=== PATIENT | female | born 1990 | race Caucasian/White ===

== ENCOUNTER 2018-01-24 22:15 | Emergency (ER) | payer MEDICAID ==
[~2018-01-24] VITALS: Ht 165.1 cm; Wt 115.1 kg
[2018-01-24] MEDS ORDERED: azithromycin 250mg tablet PO ONE (22:40)
[2018-01-24] MEDS ORDERED: benzonatate 100mg capsule PO ONE (22:40)
[2018-01-24] MEDS ORDERED: BENZ-38 PO (22:44)
[2018-01-24] MEDS ORDERED: AZIT-63 PO (22:44)
[2018-01-24] MEDS ORDERED: TAM75C PO (22:44)
[2018-01-24 23:07] VITALS: BP 122/74
== END 2018-01-24 22:50 | disposition home or self-care (01) ==
LOC: ER 22:16
DX: J20.9 Acute bronchitis, unspecified (principal); F11.10 Opioid abuse, uncomplicated; Z79.899 Other long term (current) drug therapy
CPT/HCPCS: 99283

== ENCOUNTER → 2018-01-24 | Emergency (ER) | payer MEDICAID ==
[~2018-01-24] VITALS: Ht 165.1 cm; Wt 116.7 kg
[~2018-01-24] MED LIST: AZIT-63 PO; BENZ-38 PO; TAM75C PO
[2018-01-24 21:36] VITALS: BP 139/79
== END | disposition left against medical advice (07) ==
LOC: ER 21:35
DX: H92.09 Otalgia, unspecified ear (principal); Z53.21 Procedure and treatment not carried out due to patient leaving prior to being seen by health care provider

== ENCOUNTER 2018-01-27 02:24 | Emergency (ER) | payer MEDICAID ==
[~2018-01-27] VITALS: Ht 165.1 cm; Wt 104.5 kg
[2018-01-27 02:28] VITALS: BP 157/87
== END 2018-01-27 02:57 | disposition home or self-care (01) ==
LOC: ER 02:24
DX: J06.9 Acute upper respiratory infection, unspecified (principal); F11.90 Opioid use, unspecified, uncomplicated; Z79.899 Other long term (current) drug therapy
CPT/HCPCS: 99281

== ENCOUNTER 2018-02-04 17:29 | Emergency (ER) | payer MEDICAID ==
[~2018-02-04] VITALS: Ht 165.1 cm; Wt 107.0 kg
[~2018-02-04 17:29] MED LIST changes: -TAM75C PO
[2018-02-04 18:03] VITALS: BP 122/87
[2018-02-04] MEDS ORDERED: morphine 4 MG/ML inj SYRINge IM ONE (19:00)
[2018-02-04] MEDS ORDERED: HYDR-569 PO (19:00)
== END 2018-02-04 19:25 | disposition home or self-care (01) ==
LOC: ER 17:29
DX: S83.92XA Sprain of unspecified site of left knee, initial encounter (principal); F17.200 Nicotine dependence, unspecified, uncomplicated; F11.10 Opioid abuse, uncomplicated; W01.0XXA Fall on same level from slipping, tripping and stumbling without subsequent striking against object, initial encounter; Y93.89 Activity, other specified; Y92.89 Other specified places as the place of occurrence of the external cause; Y99.8 Other external cause status
CPT/HCPCS: 29505; 73564; 96372; 99284; J2270

== ENCOUNTER 2018-02-12 21:26 | Emergency (ER) | payer MEDICAID ==
[~2018-02-12] VITALS: Ht 165.1 cm; Wt 107.0 kg
[~2018-02-12 21:26] MED LIST changes: +HYDR-569 PO
[2018-02-12 22:31] VITALS: BP 120/71
== END 2018-02-12 22:32 | disposition home or self-care (01) ==
LOC: ER 21:27
DX: M25.562 Pain in left knee (principal); F11.10 Opioid abuse, uncomplicated; Z79.899 Other long term (current) drug therapy
CPT/HCPCS: 99281

== ENCOUNTER 2018-02-15 13:46 | Outpatient (CLI) | payer MEDICAID | END 2018-02-15 14:30 | disposition home or self-care (01) | LOC: ORTHO 13:46 | PROVIDERS: ATTEND Nurse Practitioner Family | DX: S83.412A Sprain of medial collateral ligament of left knee, initial encounter (principal); F11.20 Opioid dependence, uncomplicated; X58.XXXA Exposure to other specified factors, initial encounter; Y93.89 Activity, other specified; Y92.89 Other specified places as the place of occurrence of the external cause; Y99.8 Other external cause status | CPT/HCPCS: 99213; A4467 ==

== ENCOUNTER 2018-05-13 13:13 | Emergency (ER) | payer MEDICAID ==
[~2018-05-13] VITALS: Ht 165.1 cm; Wt 111.0 kg
[~2018-05-13 13:13] MED LIST changes: -AZIT-63 PO; -BENZ-38 PO
[2018-05-13 13:25] VITALS: BP 121/69
[2018-05-13] MEDS ORDERED: PROPARACAINE/FLUORESCEIN ophthalmic drops 5ml bottle EACHEYE ONE (14:45)
[2018-05-13] MEDS ORDERED: benoxinate/fluorescein ophth drops 5ml bottle EACHEYE ONE (14:45)
[2018-05-13] MEDS ORDERED: TOBR5DRO2 RIGHTEYE (15:10)
== END 2018-05-13 15:20 | disposition home or self-care (01) ==
LOC: ER 13:13
DX: S05.01XA Injury of conjunctiva and corneal abrasion without foreign body, right eye, initial encounter (principal); F11.90 Opioid use, unspecified, uncomplicated; X58.XXXA Exposure to other specified factors, initial encounter; Y93.89 Activity, other specified; Y92.89 Other specified places as the place of occurrence of the external cause; Y99.9 Unspecified external cause status
CPT/HCPCS: 99283

== ENCOUNTER 2018-06-30 09:16 | Emergency (ER) | payer MEDICAID ==
[~2018-06-30] VITALS: Ht 1621 cm; Wt 100.0 kg
[~2018-06-30 09:16] MED LIST changes: +TOBR5DRO2 RIGHTEYE
[2018-06-30] MEDS ORDERED: normal saline 1000ML IV soln IVB ONE (09:25)
[2018-06-30] MEDS ORDERED: naloxone 2mg/2ml inj IV ONE (09:25)
[2018-06-30] MEDS ORDERED: ondansetron/PF 4mg/2ml inj IV ONE (09:25)
[2018-06-30 10:01] LABS: CLARITY,URINE SLIGHTLY CLOUDY (Clear); COLOR,URINE YELLOW (Yellow); GLUCOSE, URINE NEGATIVE (Neg); KETONES,URINE NEGATIVE (Neg); LEUKOCYTE ESTERASE ,URINE NEGATIVE (Neg); NITRITES, URINE NEGATIVE (Neg); OCCULT BLOOD,URINE NEGATIVE (Neg); PROTEIN,URINE NEGATIVE (Neg); UROBILINOGEN,URINE 0.2 E.U/dL (0.2-1.0)
[2018-06-30 10:05] LABS: UA COLLECTION TYPE CLN CATCH MIDSTREAM
[2018-06-30 10:07] LABS: BASOPHILS % (AUTO) 0.4 % (0-1); EOSINOPHILS # (AUTO) 0.4 X10'3 (0-0.9); EOSINOPHILS % (AUTO) 5.4 % (0-6); HEMOGLOBIN 13.4 g/dl (12.0-16.0); LYMPHOCYTES # (AUTO) 2.4 X10'3 (1.1-4.8); LYMPHOCYTES % (AUTO) 31.4 % (21-51); MEAN CORPUSCULAR HEMOGLOBIN 29.5 PG (27.0-31.0); MEAN CORPUSCULAR HGB CONC 33.5 % (33.0-36.5); MEAN CORPUSCULAR VOLUME 88.1 FL (78-98); MEAN PLATELET VOLUME 7.4 FL (7.4-10.4); MONOCYTES # (AUTO) 0.4 X10'3 (0-0.9); MONOCYTES % (AUTO) 5.3 % (2-12); NEUTROPHILS # (AUTO) 4.3 X10'3 (1.8-7.7); NEUTROPHILS % (AUTO) 57.5 % (42-75); PLATELET COUNT 310 X10'3 (140-440); RED BLOOD COUNT 4.54 X10'6 (4.20-5.60); RED CELL DISTRIBUTION WIDTH 15.1 % (11.5-14.5); WHITE BLOOD COUNT 7.5 X10'3 (4.5-11.0)
[2018-06-30 10:09] LABS: BACTERIA,URINE 3+ /HPF (Neg); MUCUS STRANDS FEW /LPF (Neg); RBC,URINE NONE SEEN /HPF (0-2); SQUAMOUS EPITHELIAL CELL,UR MANY /LPF (FEW); WBC,URINE 0-4 /HPF (0-4)
[2018-06-30 10:22] LABS: ALANINE AMINOTRANSFERASE 35 U/L (12-78); ALBUMIN 3.4 G/DL (3.4-5.0); ALBUMIN/GLOBULIN RATIO 0.8 (1.1-1.5); ALKALINE PHOSPHATASE 95 IU/L (46-116); ANION GAP 7 (8-16); ASPARTATE AMINO TRANSFERASE 18 U/L (10-37); BILIRUBIN,TOTAL 0.2 MG/DL (0.1-1.0); BLOOD UREA NITROGEN 11 MG/DL (7-18); BUN/CREATININE RATIO 14.7 (6.6-38.0); CHLORIDE 102 MMOL/L (99-107); CREATININE 0.75 MG/DL (0.40-0.90); GLUCOSE 109 MG/DL (70-104); POTASSIUM 3.9 MMOL/L (3.5-5.1); SODIUM 138 MMOL/L (135-145); TOTAL CARBON DIOXIDE 28.8 MMOL/L (24-32); TOTAL PROTEIN 7.8 G/DL (6.4-8.2); eGFR > 90 ML/MIN
[2018-06-30 10:29] LABS: URINE AMPHETAMINE SCREEN POSITIVE (Neg); URINE BARBITUATE SCREEN NEGATIVE (Neg); URINE BENZODIAZEPINES SCREEN NEGATIVE (Neg); URINE CANNABINOID SCREEN POSITIVE (Neg); URINE COCAINE SCREEN NEGATIVE (Neg); URINE METHADONE SCREEN NEGATIVE (Neg); URINE OPIATE SCREEN POSITIVE (Neg); URINE PHENCYCLIDINE SCREEN NEGATIVE (Neg)
[2018-06-30 10:31] LABS: CREATINE KINASE 154 U/L (26-192); ETHANOL < 0.010 GM/DL (0.0-0.010)
[2018-06-30 10:41] LABS: ACETAMINOPHEN < 2.0 UG/ML (10-30)
[2018-06-30 11:20] LABS: HCG SERUM QL NEGATIVE
[2018-06-30] MEDS ORDERED: chlordiazePOXIDE 25mg capsule PO ONE (19:30)
[2018-06-30] MEDS ORDERED: ziprasidone IM 20mg inj **IM only IM ONE (19:30)
[2018-06-30] MEDS ORDERED: LORazepam 1 MG tablet PO ONE (20:40)
[2018-06-30] MEDS ORDERED: haloperidol lactate 5mg/ml inj IM ONE ×2 (21:30→21:32)
[2018-06-30] MEDS ORDERED: diphenhydrAMINE 50 mg/ml inj IM ONE (21:30)
[2018-07-01 01:21] LABS: BASOPHILS # (AUTO) 0.2 X10'3 (0-0.2); BASOPHILS % (AUTO) 1.6 % (0-1); EOSINOPHILS % (AUTO) 0.1 % (0-6); HEMATOCRIT 40.1 % (35.0-45.0); HEMOGLOBIN 13.6 g/dl (12.0-16.0); LYMPHOCYTES # (AUTO) 1.5 X10'3 (1.1-4.8); MEAN CORPUSCULAR HEMOGLOBIN 29.3 PG (27.0-31.0); MEAN CORPUSCULAR HGB CONC 33.8 % (33.0-36.5); MEAN CORPUSCULAR VOLUME 86.7 FL (78-98); MEAN PLATELET VOLUME 8.1 FL (7.4-10.4); MONOCYTES # (AUTO) 0.4 X10'3 (0-0.9); MONOCYTES % (AUTO) 2.8 % (2-12); NEUTROPHILS # (AUTO) 11.8 X10'3 (1.8-7.7); NEUTROPHILS % (AUTO) 84.5 % (42-75); PLATELET COUNT 370 X10'3 (140-440); RED BLOOD COUNT 4.63 X10'6 (4.20-5.60); RED CELL DISTRIBUTION WIDTH 13.9 % (11.5-14.5); WHITE BLOOD COUNT 13.9 X10'3 (4.5-11.0)
[2018-07-01 01:24] LABS: ALANINE AMINOTRANSFERASE 34 U/L (12-78); ALBUMIN 3.3 G/DL (3.4-5.0); ALBUMIN/GLOBULIN RATIO 0.8 (1.1-1.5); ALKALINE PHOSPHATASE 94 IU/L (46-116); ANION GAP 11 (8-16); ASPARTATE AMINO TRANSFERASE 35 U/L (10-37); BILIRUBIN,TOTAL 0.4 MG/DL (0.1-1.0); BLOOD UREA NITROGEN 9 MG/DL (7-18); CALCIUM 8.8 MG/DL (8.5-10.1); CHLORIDE 107 MMOL/L (99-107); CREATININE 0.82 MG/DL (0.40-0.90); GLUCOSE 112 MG/DL (70-104); POTASSIUM 3.3 MMOL/L (3.5-5.1); SODIUM 142 MMOL/L (135-145); TOTAL CARBON DIOXIDE 24.4 MMOL/L (24-32); TOTAL PROTEIN 7.5 G/DL (6.4-8.2); eGFR 82 ML/MIN
[2018-07-01 01:47] LABS: CREATINE KINASE 1355 U/L (26-192)
[2018-07-01] MEDS: normal saline 1000ML IV soln IVB STA (02:01)
[2018-07-01] MEDS ORDERED: diphenhydrAMINE 50 mg/ml inj IV ONE (02:05)
[2018-07-01] MEDS ORDERED: diphenhydrAMINE 25mg capsule PO ONE (02:20)
[2018-07-01] MEDS ORDERED: LORazepam 1 MG tablet PO ONE ×2 (02:20→04:20)
[2018-07-01] MEDS ORDERED: OLANZapine 5mg rapidly disint. tablet PO ONE (02:20)
[2018-07-01] MEDS ORDERED: ketamine 50 mg/ml 10ml vial IM ONE (04:20)
[2018-07-01] MEDS ORDERED: normal saline 1000ML IV soln IVB ONE ×2 (05:40→20:50)
[2018-07-01 16:39] LABS: ALANINE AMINOTRANSFERASE 21 U/L (12-78); ALBUMIN 1.7 G/DL (3.4-5.0); ALBUMIN/GLOBULIN RATIO 0.5 (1.1-1.5); ALKALINE PHOSPHATASE 61 IU/L (46-116); ANION GAP 14 (8-16); ASPARTATE AMINO TRANSFERASE 49 U/L (10-37); BILIRUBIN,TOTAL 0.2 MG/DL (0.1-1.0); BLOOD UREA NITROGEN 5 MG/DL (7-18); BUN/CREATININE RATIO 10.2 (6.6-38.0); CALCIUM 5.1 MG/DL (8.5-10.1); CHLORIDE 114 MMOL/L (99-107); CREATINE KINASE 1541 U/L (26-192); CREATININE 0.49 MG/DL (0.40-0.90); GLUCOSE 58 MG/DL (70-104); POTASSIUM 3.4 MMOL/L (3.5-5.1); SODIUM 144 MMOL/L (135-145); TOTAL CARBON DIOXIDE 16.4 MMOL/L (24-32); TOTAL PROTEIN 4.9 G/DL (6.4-8.2); eGFR > 90 ML/MIN
[2018-07-01] MEDS ORDERED: magnesium oxide 400mg tablet PO ONE (18:15)
[2018-07-01] MEDS ORDERED: potassium Cl 20 mEq SR tablet PO ONE (18:15)
[2018-07-01] MEDS ORDERED: calcium carbonate 500mg tablet PO ONE (18:15)
[2018-07-01] MEDS ORDERED: potassium Cl 20 mEq SR tablet PO STA (20:46)
[2018-07-02 05:05] VITALS: BP 120/82
[2018-07-02] MEDS ORDERED: buprenorphine/naloxone 8mg/2mg SL tablet SL SCH ×2 (08:42→09:45)
[2018-07-02 11:59] LABS: ANION GAP 7 (8-16); BLOOD UREA NITROGEN 8 MG/DL (7-18); BUN/CREATININE RATIO 9.4 (6.6-38.0); CALCIUM 8.5 MG/DL (8.5-10.1); CHLORIDE 108 MMOL/L (99-107); CREATININE 0.85 MG/DL (0.40-0.90); GLUCOSE 134 MG/DL (70-104); POTASSIUM 4.2 MMOL/L (3.5-5.1); SODIUM 140 MMOL/L (135-145); TOTAL CARBON DIOXIDE 24.7 MMOL/L (24-32); eGFR 79 ML/MIN
[2018-07-02 13:12] LABS: CREATINE KINASE 1092 U/L (26-192)
== END 2018-07-02 14:52 | disposition home or self-care (01) ==
LOC: ER 09:16
DX: T40.1X1A Poisoning by heroin, accidental (unintentional), initial encounter (principal); T43.621A Poisoning by amphetamines, accidental (unintentional), initial encounter; F15.10 Other stimulant abuse, uncomplicated; F11.10 Opioid abuse, uncomplicated; Y92.89 Other specified places as the place of occurrence of the external cause
CPT/HCPCS: 36415; 74018; 80048; 80053; 80305; 80320; 80329; 81001; 82550; 82948; 83874; 84443; 84703; 85025; 93005; 96361; 96372; 96374; 96375; 99291; J1200; J1630; J2310; J2405; J3486; J7030; Q0163

== ENCOUNTER 2020-05-16 07:15 | Emergency (ER) | payer SELFPAY ==
[~2020-05-16] VITALS: Ht 170.2 cm; Wt 122.7 kg
[2020-05-16 08:27] LABS: BASOPHILS # (AUTO) 0.1 X10'3 (0-0.2); BASOPHILS % (AUTO) 0.7 % (0-1); EOSINOPHILS # (AUTO) 0.3 X10'3 (0-0.9); EOSINOPHILS % (AUTO) 2.4 % (0-6); HEMATOCRIT 41.8 % (35.0-45.0); HEMOGLOBIN 13.7 g/dl (12.0-16.0); LYMPHOCYTES % (AUTO) 26.9 % (21-51); MEAN CORPUSCULAR HEMOGLOBIN 29.3 PG (27.0-31.0); MEAN CORPUSCULAR HGB CONC 32.7 g/dL (33.0-36.5); MEAN CORPUSCULAR VOLUME 89.5 FL (78-98); MEAN PLATELET VOLUME 8.3 FL (7.4-10.4); MONOCYTES # (AUTO) 0.7 X10'3 (0-0.9); MONOCYTES % (AUTO) 6.2 % (2-12); NEUTROPHILS # (AUTO) 7.1 X10'3 (1.8-7.7); NEUTROPHILS % (AUTO) 63.8 % (42-75); PLATELET COUNT 323 X10'3 (140-440); RED BLOOD COUNT 4.67 X10'6 (4.20-5.60); RED CELL DISTRIBUTION WIDTH 15.2 % (11.5-14.5); WHITE BLOOD COUNT 11.1 X10'3 (4.5-11.0)
[2020-05-16 08:30] LABS: ALANINE AMINOTRANSFERASE 29 U/L (12-78); ALBUMIN 3.5 G/DL (3.4-5.0); ALBUMIN/GLOBULIN RATIO 0.9 (1.1-1.5); ALKALINE PHOSPHATASE 79 IU/L (46-116); AMYLASE 22 U/L (25-115); ANION GAP 9 (8-16); ASPARTATE AMINO TRANSFERASE 16 U/L (10-37); BILIRUBIN,TOTAL 0.3 MG/DL (0.1-1.0); BLOOD UREA NITROGEN 10 MG/DL (7-18); BUN/CREATININE RATIO 13.2 (6.6-38.0); CALCIUM 8.7 MG/DL (8.5-10.1); CHLORIDE 105 MMOL/L (99-107); CREATININE 0.76 MG/DL (0.40-0.90); GLUCOSE 114 MG/DL (70-104); LIPASE < 50 U/L (73-393); POTASSIUM 4.4 MMOL/L (3.5-5.1); SODIUM 140 MMOL/L (135-145); TOTAL CARBON DIOXIDE 25.9 MMOL/L (24-32); TOTAL PROTEIN 7.6 G/DL (6.4-8.2); eGFR 89 ML/MIN
[2020-05-16 09:52] LABS: URINE HCG NEGATIVE (NEG)
[2020-05-16 09:56] LABS: CLARITY,URINE SLIGHTLY CLOUDY (Clear); COLOR,URINE YELLOW (Yellow); GLUCOSE, URINE NEGATIVE (Neg); KETONES,URINE TRACE mg/dl (Neg); LEUKOCYTE ESTERASE ,URINE NEGATIVE (Neg); NITRITES, URINE NEGATIVE (Neg); OCCULT BLOOD,URINE LARGE (Neg); PROTEIN,URINE TRACE mg/dl (Neg)
[2020-05-16 10:00] LABS: UA COLLECTION TYPE CLN CATCH MIDSTREAM
[2020-05-16 10:02] LABS: MUCUS STRANDS MANY /LPF (Neg); SQUAMOUS EPITHELIAL CELL,UR MANY /LPF (FEW)
[2020-05-16 10:04] LABS: RBC,URINE 50-100 /HPF (0-2)
[2020-05-16 10:05] LABS: BACTERIA,URINE 1+ /HPF (Neg)
[2020-05-16] MEDS ORDERED: famotidine 20mg tablet PO ONE (10:50)
[2020-05-16] MEDS ORDERED: FAMO-128 PO (10:50)
[2020-05-16 11:40] VITALS: BP 123/75
== END 2020-05-16 11:42 | disposition home or self-care (01) ==
LOC: ER 07:15
DX: K29.00 Acute gastritis without bleeding (principal); R11.2 Nausea with vomiting, unspecified; R10.9 Unspecified abdominal pain; F15.90 Other stimulant use, unspecified, uncomplicated; F11.90 Opioid use, unspecified, uncomplicated; Z72.89 Other problems related to lifestyle; Z79.899 Other long term (current) drug therapy
CPT/HCPCS: 36415; 80053; 81001; 81025; 82150; 83690; 85025; 99283

== ENCOUNTER 2020-11-03 07:45 | Emergency (ER) | payer MEDICAID ==
[~2020-11-03] VITALS: Ht 165.1 cm; Wt 109.1 kg
[~2020-11-03 07:45] MED LIST changes: +FAMO-128 PO; -HYDR-569 PO; -TOBR5DRO2 RIGHTEYE
[2020-11-03] MEDS ORDERED: normal saline 1000ML IV soln IVB ONE (08:10)
[2020-11-03] MEDS ORDERED: metoclopramide 5 mg/ml inj IV ONE (08:10)
[2020-11-03] MEDS ORDERED: diphenhydrAMINE 50 mg/ml inj IV ONE (08:10)
[2020-11-03 09:06] LABS: BASOPHILS # (AUTO) 0.1 X10'3 (0-0.2); BASOPHILS % (AUTO) 0.6 % (0-1); EOSINOPHILS # (AUTO) 0.1 X10'3 (0-0.9); EOSINOPHILS % (AUTO) 0.7 % (0-6); HEMATOCRIT 46.2 % (35.0-45.0); HEMOGLOBIN 14.9 g/dl (12.0-16.0); LYMPHOCYTES # (AUTO) 1.9 X10'3 (1.1-4.8); LYMPHOCYTES % (AUTO) 12.7 % (21-51); MEAN CORPUSCULAR HEMOGLOBIN 27.2 PG (27.0-31.0); MEAN CORPUSCULAR HGB CONC 32.3 g/dL (33.0-36.5); MEAN CORPUSCULAR VOLUME 84.2 FL (78-98); MEAN PLATELET VOLUME 7.6 FL (7.4-10.4); MONOCYTES # (AUTO) 0.5 X10'3 (0-0.9); MONOCYTES % (AUTO) 3.4 % (2-12); NEUTROPHILS # (AUTO) 12.2 X10'3 (1.8-7.7); NEUTROPHILS % (AUTO) 82.6 % (42-75); PLATELET COUNT 419 X10'3 (140-440); RED BLOOD COUNT 5.49 X10'6 (4.20-5.60); RED CELL DISTRIBUTION WIDTH 17.5 % (11.5-14.5); WHITE BLOOD COUNT 14.8 X10'3 (4.5-11.0)
[2020-11-03 09:18] LABS: URINE HCG NEGATIVE (NEG)
[2020-11-03 09:28] LABS: ALANINE AMINOTRANSFERASE 30 U/L (12-78); ALBUMIN 3.9 G/DL (3.4-5.0); ALBUMIN/GLOBULIN RATIO 0.8 (1.1-1.5); ALKALINE PHOSPHATASE 118 IU/L (46-116); ANION GAP 11 (8-16); ASPARTATE AMINO TRANSFERASE 20 U/L (10-37); BILIRUBIN,TOTAL 0.5 MG/DL (0.1-1.0); BLOOD UREA NITROGEN 10 MG/DL (7-18); BUN/CREATININE RATIO 13.5 (6.6-38.0); CALCIUM 9.4 MG/DL (8.5-10.1); CHLORIDE 101 MMOL/L (99-107); CREATININE 0.74 MG/DL (0.40-0.90); GLUCOSE 115 MG/DL (70-104); LIPASE < 50 U/L (73-393); POTASSIUM 4.1 MMOL/L (3.5-5.1); SODIUM 137 MMOL/L (135-145); TOTAL CARBON DIOXIDE 25.2 MMOL/L (24-32); eGFR > 90 ML/MIN
[2020-11-03 09:31] LABS: URINE AMPHETAMINE SCREEN POSITIVE (Neg); URINE BARBITUATE SCREEN NEGATIVE (Neg); URINE BENZODIAZEPINES SCREEN NEGATIVE (Neg); URINE CANNABINOID SCREEN NEGATIVE (Neg); URINE COCAINE SCREEN NEGATIVE (Neg); URINE METHADONE SCREEN NEGATIVE (Neg); URINE OPIATE SCREEN POSITIVE (Neg); URINE PHENCYCLIDINE SCREEN NEGATIVE (Neg)
[2020-11-03 11:45] VITALS: BP 124/76
== END 2020-11-03 11:50 | disposition home or self-care (01) ==
LOC: ER 07:45
DX: R11.10 Vomiting, unspecified (principal); T43.625A Adverse effect of amphetamines, initial encounter; F12.90 Cannabis use, unspecified, uncomplicated; F15.90 Other stimulant use, unspecified, uncomplicated; F11.90 Opioid use, unspecified, uncomplicated; Z79.899 Other long term (current) drug therapy; Y92.89 Other specified places as the place of occurrence of the external cause
CPT/HCPCS: 36415; 76700; 80053; 80305; 81025; 83690; 85025; 96361; 96374; 96375; 99284; J1200; J2765; J7030

== ENCOUNTER 2021-05-02 22:53 | Emergency (ER) | payer MEDICAID ==
[~2021-05-02] VITALS: Ht 165.1 cm; Wt 90.0 kg
[2021-05-02 23:23] LABS: BASOPHILS # (AUTO) 0.1 X10'3 (0-0.2); BASOPHILS % (AUTO) 0.5 % (0-1); EOSINOPHILS # (AUTO) 0.5 X10'3 (0-0.9); HEMATOCRIT 35.1 % (35.0-45.0); HEMOGLOBIN 11.6 g/dl (12.0-16.0); LYMPHOCYTES # (AUTO) 3.9 X10'3 (1.1-4.8); LYMPHOCYTES % (AUTO) 14.9 % (21-51); MEAN CORPUSCULAR HEMOGLOBIN 29.4 PG (27.0-31.0); MEAN CORPUSCULAR HGB CONC 33.2 g/dL (33.0-36.5); MEAN CORPUSCULAR VOLUME 88.8 FL (78-98); MEAN PLATELET VOLUME 7.5 FL (7.4-10.4); MONOCYTES # (AUTO) 2.1 X10'3 (0-0.9); MONOCYTES % (AUTO) 8.2 % (2-12); NEUTROPHILS # (AUTO) 19.5 X10'3 (1.8-7.7); NEUTROPHILS % (AUTO) 74.4 % (42-75); PLATELET COUNT 199 X10'3 (140-440); RED BLOOD COUNT 3.95 X10'6 (4.20-5.60); RED CELL DISTRIBUTION WIDTH 18.9 % (11.5-14.5)
[2021-05-02 23:27] LABS: WHITE BLOOD COUNT 26.1 X10'3 (4.5-11.0)
[2021-05-02 23:35] LABS: ALANINE AMINOTRANSFERASE 23 U/L (12-78); ALBUMIN 3.1 G/DL (3.4-5.0); ALBUMIN/GLOBULIN RATIO 0.6 (1.1-1.5); ALKALINE PHOSPHATASE 240 IU/L (46-116); ANION GAP 9 (8-16); ASPARTATE AMINO TRANSFERASE 16 U/L (10-37); BILIRUBIN,TOTAL 0.2 MG/DL (0.1-1.0); BLOOD UREA NITROGEN 11 MG/DL (7-18); BUN/CREATININE RATIO 13.4 (6.6-38.0); CALCIUM 8.5 MG/DL (8.5-10.1); CHLORIDE 103 MMOL/L (99-107); CREATININE 0.82 MG/DL (0.40-0.90); GLUCOSE 141 MG/DL (70-104); POTASSIUM 3.9 MMOL/L (3.5-5.1); SODIUM 137 MMOL/L (135-145); TOTAL CARBON DIOXIDE 24.6 MMOL/L (24-32); eGFR 81 ML/MIN
[2021-05-03 00:01] LABS: C-REACTIVE PROTEIN 5.33 MG/DL (0.0-0.5)
[2021-05-03] MEDS ORDERED: CefTRIAXone 2gm/D5W 50ml BAG 50 ML IV ONE (00:35)
[2021-05-03 01:15] LABS: CLARITY,URINE CLOUDY (Clear); COLOR,URINE YELLOW (Yellow); GLUCOSE, URINE NEGATIVE (Neg); KETONES,URINE TRACE mg/dl (Neg); LEUKOCYTE ESTERASE ,URINE MODERATE (Neg); NITRITES, URINE POSITIVE (Neg); OCCULT BLOOD,URINE LARGE (Neg); PROTEIN,URINE 100 mg/dl (Neg); UROBILINOGEN,URINE 0.2 E.U/dL (0.2-1.0)
[2021-05-03 01:23] LABS: UA COLLECTION TYPE CLN CATCH MIDSTREAM
[2021-05-03 01:29] LABS: HCG SERUM QL NEGATIVE
[2021-05-03 01:38] LABS: RBC,URINE 50-100 /HPF (0-2)
[2021-05-03 01:39] LABS: BACTERIA,URINE 3+ /HPF (Neg); MUCUS STRANDS FEW /LPF (Neg); SQUAMOUS EPITHELIAL CELL,UR NONE SEEN /LPF (FEW); WBC,URINE 50-100 /HPF (0-4)
[2021-05-03] MEDS ORDERED: CEPH-585 PO (02:01)
[2021-05-03 02:27] VITALS: BP 114/70
== END 2021-05-03 02:28 | disposition home or self-care (01) ==
LOC: ER 22:54
DX: J20.9 Acute bronchitis, unspecified (principal); N39.0 Urinary tract infection, site not specified; R30.9 Painful micturition, unspecified; R05 Cough; F17.200 Nicotine dependence, unspecified, uncomplicated; F15.90 Other stimulant use, unspecified, uncomplicated; F11.90 Opioid use, unspecified, uncomplicated; Z72.89 Other problems related to lifestyle; Z79.2 Long term (current) use of antibiotics; Z79.899 Other long term (current) drug therapy
CPT/HCPCS: 36415; 71045; 80053; 81001; 83605; 84145; 84703; 85025; 85651; 86140; 87040; 87077; 87088; 87186; 93005; 96365; 99285; J0696

== ENCOUNTER 2021-08-04 11:18 | Day surgery (SDC) | payer MEDICAID ==
[~2021-08-04] VITALS: Ht 165.1 cm; Wt 92.8 kg
[~2021-08-04 11:18] MED LIST changes: -FAMO-128 PO; +Methadone PO; +ONDA4TAB6 PO
[2021-08-04] MEDS ORDERED: normal saline 1000ml 1,000 ML IV PRN (11:45)
[2021-08-04 11:56] VITALS: BP 118/61
[2021-08-04] MEDS ORDERED: LIDOcaine 1%/PF 5ML 10 MG/ML VIAL ONE ×2 (12:55→13:08)
[2021-08-04 13:25] VITALS: BP 130/80
== END 2021-08-04 13:39 | disposition home or self-care (01) ==
LOC: SSTAY O 11:18
PROVIDERS: ATTEND Radiology Vascular & Interventional Radiology
DX: Z45.2 Encounter for adjustment and management of vascular access device (principal); C18.7 Malignant neoplasm of sigmoid colon; Z79.899 Other long term (current) drug therapy
CPT/HCPCS: 36590

== ENCOUNTER 2022-06-01 14:25 | Emergency (ER) | payer MEDICAID ==
[~2022-06-01] VITALS: Ht 162.6 cm; Wt 135.0 kg
[~2022-06-01 14:25] MED LIST changes: -ONDA4TAB6 PO
[2022-06-01 14:39] VITALS: BP 100/62
== END 2022-06-01 15:20 ==
LOC: ER 14:25
DX: F19.10 Other psychoactive substance abuse, uncomplicated (principal); F15.20 Other stimulant dependence, uncomplicated; F11.90 Opioid use, unspecified, uncomplicated
CPT/HCPCS: 99283

== ENCOUNTER 2022-07-12 17:16 | Emergency (ER) | payer MEDICAID | END 2022-07-12 21:46 | disposition left against medical advice (07) | LOC: ER 17:52 | DX: Z00.8 Encounter for other general examination (principal); Z53.21 Procedure and treatment not carried out due to patient leaving prior to being seen by health care provider ==